=== PATIENT | male | born 1965 | race Caucasian/White ===

== ENCOUNTER 2021-06-23 14:57 | Emergency (ER) | payer OTHER ==
[~2021-06-23] VITALS: Ht 177.8 cm; Wt 101.0 kg
[2021-06-23] MEDS ORDERED: HYDROCODONE/ACETAMINOPHEN 5/325MG TABLET PO ONE (15:15)
[2021-06-23] MEDS ORDERED: IBUPROFEN 400MG TABLET PO ONE (15:30)
[2021-06-23] MEDS ORDERED: HYDR-4001 MT (17:33)
[2021-06-23] MEDS ORDERED: IBUP-2028 MT (17:33)
[2021-06-23 17:55] VITALS: BP 150/80
== END 2021-06-23 17:58 | disposition home or self-care (01) ==
LOC: ER 14:57
DX: S86.011A Strain of right Achilles tendon, initial encounter (principal); E11.9 Type 2 diabetes mellitus without complications; X58.XXXA Exposure to other specified factors, initial encounter; Y93.89 Activity, other specified; Y92.89 Other specified places as the place of occurrence of the external cause; Y99.8 Other external cause status
CPT/HCPCS: 29515; 73610; 73630; 76881; 99284